=== PATIENT | female | born 1970 | race Two or more races ===

== ENCOUNTER 2016-10-23 16:56 | Emergency (ER) | payer SELFPAY ==
[2016-10-23] MEDS ORDERED: Cyclobenzaprine TAB* 10 MG PO ONE (18:17)
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
--- NOTE | 2016-10-23 19:47 | RAD ---
Indication: Back pain, numbness and tingling. CT of the lumbar spine was obtained in the axial plane. Sagittal and coronal reconstructed images were obtained. The vertebral bodies appear normal in height. No evidence of compression fracture is noted. At L5-S1 there is no focal protrusion. Mild facet arthropathy is noted. No central foraminal stenosis is noted. At L4-L5 broad-based protrusion flattens the thecal sac. Mild to moderate facet arthropathy is noted. No central foraminal stenosis is noted. L3-L4 broad-based protrusion flattens the thecal sac. No central or foraminal stenosis is noted. At L2-L3 and L1-L2 no disc protrusion is identified. IMPRESSION: L4-L5 broad-based protrusion with facet and ligamentous hypertrophy with mild spinal stenosis at this level.
[2016-10-23 21:14] VITALS: BP 111/68
== END 2016-10-23 21:26 | disposition home or self-care (01) ==
LOC: ED 16:56 → MERGE 16:56 → ED 21:26
DX: M51.26 Other intervertebral disc displacement, lumbar region (principal); M48.06 Spinal stenosis, lumbar region; F17.200 Nicotine dependence, unspecified, uncomplicated
CPT/HCPCS: 72131; 99282; A9270-GY